=== PATIENT | female | born 1945 | race African-American/Black ===

== ENCOUNTER 2023-07-03 18:50 | Emergency (ER) | payer OTHER ==
[~2023-07-03] VITALS: Ht 157.5 cm; Wt 89.8 kg
[2023-07-03 21:11] VITALS: TEMP 97.1
[2023-07-03 22:29] VITALS: O2SAT 94
[2023-07-03] MEDS ORDERED: HYDROmorphone HCL 2 MG/ML VL/or syr IM ONE (22:30)
[2023-07-03 22:56] LABS: Urine Bacteria FEW /hpf (None Seen); Urine Blood Negative /uL (Negative); Urine Clarity Clear (Clear); Urine Color Yellow (Yellow); Urine Protein, UAD Negative (Negative); Urine Specific Gravity 1.037 (1.001-1.035); Urine Urobilinogen Normal (Negative); Urine WBC 13 /hpf (0 - 5)
[2023-07-03] MEDS ORDERED: SULFAMETHOX W/TRIMETH(800/160MG) DS TAB PO ONE (23:45)
[2023-07-03] MEDS ORDERED: PERCOT PO ×2 (23:59)
[2023-07-04 00:15] VITALS: BP 134/65; PULSE 60; RESP 18
[2023-07-04] MEDS ORDERED: PERCOT PO (14:21)
== END 2023-07-04 00:25 | disposition home or self-care (01) ==
LOC: ER 18:50
DX: M47.816 Spondylosis without myelopathy or radiculopathy, lumbar region (principal); M54.40 Lumbago with sciatica, unspecified side; I10 Essential (primary) hypertension
CPT/HCPCS: 72100; 81001; 96372; 99285; J1170